=== PATIENT | female | born 1965 | race Caucasian/White ===

== ENCOUNTER → 2020-12-29 | Outpatient (CLI) | payer OTHER | LOC: RAD 16:57 | DX: M17.0 Bilateral primary osteoarthritis of knee (principal); M85.88 Other specified disorders of bone density and structure, other site; M21.161 Varus deformity, not elsewhere classified, right knee; M21.162 Varus deformity, not elsewhere classified, left knee ==

== ENCOUNTER → 2021-05-27 | Outpatient (CLI) | payer OTHER | LOC: LAB 11:19 | DX: N39.0 Urinary tract infection, site not specified (principal) ==

== ENCOUNTER → 2021-07-04 | Outpatient (REF) | LOC: LAB 17:40 | DX: Z00.00 Encounter for general adult medical examination without abnormal findings (principal) ==

== ENCOUNTER 2021-12-04 09:48 | Emergency (ER) | payer OTHER ==
[2021-12-04] MEDS ORDERED: CLOPIDOGREL75 M2 PO (09:58)
[2021-12-04] MEDS ORDERED: SIMVASTATIN40 M1 PO (09:58)
[2021-12-04] MEDS ORDERED: HYDROCHLOROTH12.5 M1 PO (09:58)
[2021-12-04] MEDS ORDERED: TOPCARE ASPIRIN81 M1 PO (09:58)
[2021-12-04] MEDS ORDERED: METOPROLOL SUCC25 M1 PO (09:58)
[2021-12-04] MEDS ORDERED: LISINOPRIL40 MG PO (09:58)
[2021-12-04 11:22] LABS: BASO # 0.05 K/mm3 (0.02-0.10); EOS # 0.23 K/mm3 (0.04-0.40); EOS % 2.9 % (1.0-5.0); HEMATOCRIT 40.7 % (37.0-47.0); HEMOGLOBIN 13.7 g/dL (12.5-16.0); LYMPH# 1.63 K/mm3 (1.50-4.00); MEAN CELL VOLUME 94 fl (78-100); MEAN CORPUSCULAR HEMOGLOBIN 32 pg (27-31); MEAN CORPUSCULAR HGB CONC 34 g/dL (33-37); MONO # 0.48 K/mm3 (0.20-0.80); NEU # 5.52 K/mm3 (1.40-6.50); PLATELET COUNT 165 K/mm3 (130-400); RED BLOOD COUNT 4.31 M/mm3 (4.10-5.30); RED CELL DISTRIBUTION WIDTH 12.1 % (11.5-14.5); WHITE BLOOD COUNT 7.9 K/mm3 (4.8-10.8)
[2021-12-04 11:34] LABS: CALCIUM 10.1 mg/dL (8.3-10.5)
[2021-12-04 11:35] LABS: TOTAL PROTEIN 7.6 g/dL (6.4-8.3)
[2021-12-04 11:37] LABS: TOTAL BILIRUBIN 0.4 mg/dL (0.2-1.2)
[2021-12-04 11:45] LABS: URINE APPEARANCE CLEAR; URINE BILIRUBIN NEGATIVE (NEGATIVE); URINE BLOOD NEGATIVE (NEGATIVE); URINE COLOR BRIGHT YELLOW; URINE GLUCOSE NEGATIVE (NEGATIVE); URINE KETONE NEGATIVE (NEGATIVE); URINE LEUKOCYTE ESTERASE NEGATIVE (NEGATIVE); URINE MUCUS PRESENT (NOT PRESENT); URINE NITRATE NEGATIVE (NEGATIVE); URINE PROTEIN(semi-quant) TRACE (NEGATIVE); URINE UROBILINOGEN NORMAL (NORMAL); URINE WBC 0-1 /hpf (0-3)
[2021-12-04] MEDS ORDERED: DRAMAMINE LESS25 MG PO (12:33)
[2021-12-04] MEDS ORDERED: VALIUM 2MG T2 MG/TAB PO (12:33)
[2021-12-04 13:35] VITALS: BP 143/53
== END 2021-12-04 12:44 | disposition home or self-care (01) ==
LOC: ED 09:48
PROVIDERS: Nurse Practitioner
DX: H61.22 Impacted cerumen, left ear (principal); E66.01 Morbid (severe) obesity due to excess calories

== ENCOUNTER → 2024-07-10 | Outpatient (CLI) | payer OTHER ==
[~2024-07-10] MED LIST: CLOPIDOGREL75 M2 PO; DRAMAMINE LESS25 MG PO; HYDROCHLOROTH12.5 M1 PO; LISINOPRIL40 MG PO; METOPROLOL SUCC25 M1 PO; SIMVASTATIN40 M1 PO; TOPCARE ASPIRIN81 M1 PO; VALIUM 2MG T2 MG/TAB PO
== END ==
LOC: RAD 11:09
DX: M17.11 Unilateral primary osteoarthritis, right knee (principal); E04.1 Nontoxic single thyroid nodule